=== PATIENT | female | born 2000 | race Caucasian/White ===

== ENCOUNTER 2024-03-09 15:45 | Emergency (ER) | payer OTHER, SELFPAY ==
[~2024-03-09] VITALS: Ht 162.6 cm; Wt 75.4 kg
[2024-03-09 19:18] LABS: BASO # 0.1 10^3/uL (0.0-0.2); BASO % 0.9 % (0.0-1.0); EOS # 0.2 10^3/uL (0.0-0.5); EOS % 3.2 % (0.0-3.0); HEMOGLOBIN 13.7 g/dl (12.0-15.5); LYMPH # 2.4 10^3/uL (1.5-5.0); LYMPH % 34.9 % (24.0-44.0); MEAN CORPUSCULAR HEMOGLOBIN 30.9 pg (27.0-33.0); MEAN CORPUSCULAR HGB CONC 33.4 g/dl (32.0-36.5); MEAN CORPUSCULAR VOLUME 92.3 fl (80.0-96.0); MONO # 0.2 10^3/uL (0.0-0.8); MONO % 2.9 % (2.0-8.0); NEUTROPHILS # 3.9 10^3/uL (1.5-8.5); NEUTROPHILS % 57.8 % (36.0-66.0); PLATELET COUNT, AUTOMATED 248 10^3/uL (150-450); RED BLOOD COUNT 4.44 10^6/uL (4.00-5.40); WHITE BLOOD COUNT 6.8 10^3/uL (4.0-10.0)
[2024-03-09 19:42] LABS: LIPASE 47 U/L (12-53)
[2024-03-09 19:44] LABS: ALBUMIN 3.7 G/DL (3.2-5.2); ALKALINE PHOSPHATASE 50 U/L (35-104); ALT/SGPT 20 U/L (7.0-40); AST/SGOT 9 U/L (<34); BILIRUBIN,DIRECT 0.3 MG/DL (<0.4); BLOOD UREA NITROGEN 10 MG/DL (9-23); CALCIUM LEVEL 9.3 MG/DL (8.5-10.1); CARBON DIOXIDE LEVEL 26 MMOL/L (20-31); CHLORIDE LEVEL 107 MMOL/L (98-107); CREATININE FOR GFR 0.67 MG/DL (0.55-1.30); GLOMERULAR FILTRATION RATE > 60.0 (>60); GLUCOSE, FASTING 87 MG/DL (60-100); HCG, SERUM QUANTITATIVE < 2.6 MIU/ML (<4.2); POTASSIUM SERUM 3.9 MMOL/L (3.5-5.1); SODIUM LEVEL 141 MMOL/L (136-145); TOTAL PROTEIN 6.9 G/DL (5.7-8.2)
[2024-03-09] MEDS ORDERED: ISOVUE-370 76% 100ML VIAL As Ordered ONE (19:54)
[2024-03-09] MEDS: METOCLOPRAMIDE INJ 10MG/2ML VIAL IV ONE (21:26)
[2024-03-09] MEDS: KETOROLAC 30 MG/ML 1ML VIAL IV ONE (21:26)
[2024-03-09] MEDS: MAG SULF 1GM/100ML (MAG RUN) 1 GM in IV 1 EA IV ONE (21:39)
[2024-03-09 23:05] VITALS: BP 132/77; TEMP 97.9; O2SAT 100
== END 2024-03-09 23:07 | disposition home or self-care (01) ==
LOC: M ED 15:45
DX: G43.909 Migraine, unspecified, not intractable, without status migrainosus (principal); R20.2 Paresthesia of skin
CPT/HCPCS: 70450; 70496; 70498; 80048; 80076; 83690; 84702; 85025; 96365; 96375; 99284; J1100; J1885; J2765; J3475; Q9967

== ENCOUNTER 2025-02-16 23:06 | Emergency (ER) | payer OTHER ==
[~2025-02-16] VITALS: Ht 162.6 cm; Wt 85.7 kg
[2025-02-17 09:25] VITALS: BP 117/65; TEMP 96.7; O2SAT 96
== END 2025-02-17 09:27 | disposition home or self-care (01) ==
LOC: M ED 23:06
DX: S83.91XA Sprain of unspecified site of right knee, initial encounter (principal); M79.604 Pain in right leg; M25.571 Pain in right ankle and joints of right foot; Y92.410 Unspecified street and highway as the place of occurrence of the external cause; Y93.9 Activity, unspecified; Y99.9 Unspecified external cause status; W01.0XXA Fall on same level from slipping, tripping and stumbling without subsequent striking against object, initial encounter